=== PATIENT | male | born 1950 | race Caucasian/White ===

== ENCOUNTER 2018-03-13 23:58 | Observation (INO) | payer BC ==
[~2018-03-13] VITALS: Ht 175.3 cm; Wt 110.0 kg
[~2018-03-13 23:58] MED LIST: ASPIR-LOW81 MG PO; ASPIRIN E.C.81 M2 PO; ASPIRIN81 M2 PO; Ecotrin PO; IMDUR30 MG PO; LISINOPRIL5 MG PO; METFORMIN HCL500 MG PO; METOPROLOL SUCC25 MG PO; PERCOCET 5/31 TABLET PO; PLAVIX75 MG PO; PROTONIX40 MG PO; SIMVASTATIN80 MG PO; ST JOSEPH ASPIR81 M2 PO; TOPROL XL50 MG PO; VYTORIN 10-801 EACH PO; VYTORIN 10/81 TABLET PO; ZESTRIL,PRINIVIL5 MG PO; ZITHROMAX Z-PA250 MG PO
[2018-03-14 00:31] LABS: HEMATOCRIT 43.4 % (38.0-50.0); HEMOGLOBIN 15.2 G/DL (12.5-16.6); MCH 30.8 PG (29.0-34.0); PLATELET COUNT 194 K/uL (156-360); RBC DIS.WIDTH-CV 12.3 % (11.8-14.6); RBC DIS.WIDTH-SD 39.8 % (39-53); RED BLOOD COUNT 4.93 M/uL (4.00-5.50); WHITE BLOOD COUNT 7.8 K/uL (4.1-10.2)
[2018-03-14 00:41] LABS: ALBUMIN 4.3 g/dL (3.2-4.8); CHLORIDE 104 mEq/L (99-109); POTASSIUM 3.9 mEq/L (3.7-5.4); SODIUM 137 mEq/L (136-147)
[2018-03-14 00:43] LABS: GLUCOSE 138 mg/dL (70-99)
[2018-03-14 00:45] LABS: TOTAL BILIRUBIN 0.7 mg/dL (0.0-1.0)
[2018-03-14 00:47] LABS: ALKALINE PHOSPHATASE 49 IU/L (3-129); CREATININE 1.1 mg/dL (0.6-1.3); GFR ESTIMATE (CALCULATED) > 59 mL/min/ (58.99-99999)
[2018-03-14 00:48] LABS: UREA NITROGEN (BUN) 14 mg/dL (9-23)
[2018-03-14 00:49] LABS: AST (GOT) 28 IU/L (2-34)
[2018-03-14 00:50] LABS: ALT (GPT) 54 IU/L (3-49); LIPASE 19 U/L (1.0-51.0)
[2018-03-14 00:52] LABS: TROP-I INTERPRETATION NEGATIVE; TROPONIN-I < 0.01 ng/mL (0.0-0.30)
[2018-03-14 03:48] LABS: D-DIMER ELISA < 150.00 ng/mLDDU (<230)
[2018-03-14 06:21] LABS: TROP-I INTERPRETATION NEGATIVE; TROPONIN-I < 0.01 ng/mL (0.0-0.30)
[2018-03-14] MEDS ORDERED: NITROSTAT0.4 MG SL (07:21)
[2018-03-14 07:45] VITALS: BP 146/85
[2018-03-14 10:56] VITALS: BP 114/68
[2018-03-14 13:16] LABS: TROP-I INTERPRETATION NEGATIVE; TROPONIN-I < 0.01 ng/mL (0.0-0.30)
== END 2018-03-14 15:42 | disposition home or self-care (01) ==
LOC: EME 23:58 → EDOF 03-14 03:42 → ENRESERV 03-14 03:49 → 4SOUTH 03-14 07:41
PROVIDERS: Emergency Medicine; Hospitalist
DX: R07.89 Other chest pain (principal); R94.31 Abnormal electrocardiogram [ECG] [EKG]; I10 Essential (primary) hypertension; I25.10 Atherosclerotic heart disease of native coronary artery without angina pectoris; E11.9 Type 2 diabetes mellitus without complications; E78.5 Hyperlipidemia, unspecified; T82.858D Stenosis of other vascular prosthetic devices, implants and grafts, subsequent encounter; Z95.5 Presence of coronary angioplasty implant and graft; Z79.84 Long term (current) use of oral hypoglycemic drugs; I25.2 Old myocardial infarction; Z79.82 Long term (current) use of aspirin; Z79.02 Long term (current) use of antithrombotics/antiplatelets; Z88.5 Allergy status to narcotic agent; Z91.048 Other nonmedicinal substance allergy status
CPT/HCPCS: 71046; 80053; 82948; 83690; 84484; 85027; 85379; 93005; 99281; 99284; G0378; J1650